=== PATIENT | female | born 1950 | race Caucasian/White ===

== ENCOUNTER 2017-12-29 15:50 | Observation (INO) | payer MEDICARE, BC ==
[~2017-12-29] VITALS: Ht 165.1 cm; Wt 62.5 kg
--- NOTE | ~2017-12-29 | DS ---
PATIENT:SYD LENNON :50 MEDICAL RECORD: [id number] DISCHARGE SUMMARY ADMISSION DATE: 12/29/17 DISCHARGE DATE: 12/30/17 DIAGNOSES: 1. Hypertension. 2. Sinusitis. HISTORY AND HOSPITAL COURSE: Ms. Lennon presents with vague symptomatology from sinusitis and stating her blood pressure had been out of control. However, she restarted her lisinopril and metoprolol that she had at home, and her heart rate and blood pressure are well controlled since she has been in. Her troponin was normal. She underwent cardiac catheterization 2 years ago, which was normal. No other cardiac workup or treatment is necessary at this time. TRANSINT:[id number] Voice Confirmation ID: [id number] DOCUMENT ID: [id number] DARREN ROSAS MD at 1914 CC: [id number] DICTATION DATE: 12/30/17 1128 SPECIAL EDUCATION INCLUSION TEACHER: 12/31/17 0959 DIS IN 12/30/17 [facility] [address] [place] [address]
--- NOTE | ~2017-12-29 | HP ---
PATIENT: SYD LENNON MEDICAL RECORD: [id number] ACCOUNT: [id number] LOCATION:[address] : 50 ADMISSION DATE: 12/29/17 PCP: EMILIA VALERA DO HISTORY AND PHYSICAL EXAMINATION DIAGNOSES: 1. Hypertension. 2. Fatigue. 3. Sinusitis. HISTORY OF PRESENT ILLNESS: Ms. Lennon developed a sinusitis approximately a week ago, was taking Benadryl. This caused her to have a spike in her blood pressure. She was previously on metoprolol and lisinopril. She went to [facility]. They told her to resume her lisinopril and metoprolol. She continued to have vague symptomatology, presents to the Emergency Room. She did have some chest pain. Over 2 years ago, she underwent cardiac catheterization, which was totally normal. Her troponin is normal. Her EKG is normal. Her heart rate and blood pressure are fine on the metoprolol and lisinopril. PHYSICAL EXAMINATION: GENERAL APPEARANCE: Well-nourished, well-developed, appears stated age. Level of distress, comfortable. PSYCHIATRIC: Mental status, alert, normal affect. Orientation, oriented to time, place and person. EYES: Lids and conjunctiva, noninjected. No discharge, no pallor. ENT: Lips, teeth, gums, normal dentition. Oropharynx, no cyanosis, no pallor. NECK: Carotid arteries, bilateral normal upstroke, no bruits, no thrills. JUGULAR VEINS: No jugular venous pressure or distention. CERVICAL LYMPH NODES: Nontender, nonenlarged. THYROID: Not enlarged. Nontender. No nodules. LUNGS: Respiratory effort, unlabored. CHEST: Normal curvature. No thoracic deformity. No chest wall tenderness. Percussion, resonant. Auscultation, clear. No wheezes, no rales, no rhonchi. CARDIOVASCULAR: Precordial exam, nondisplaced. No heaves or pericardial thrills. Rate and rhythm, regular. Heart sounds, normal S1, normal S2. No S3, no gallop, no rub. Systolic murmur, not heard. Diastolic murmur, not heard. EXTREMITIES: No cyanosis, no edema. Peripheral pulses, full and equal in all extremities, except as noted. No bruits appreciated. ABDOMEN: Soft, nondistended. Normal aorta. No bruit. Nontender. No masses. Liver, nontender, no hepatomegaly. Spleen, nontender, no splenomegaly. MUSCULOSKELETAL: No joint tenderness. No joint swelling. No erythema. NEUROLOGICAL: Normal gait, normal strength, normal tone. SKIN: Warm and dry. OVERALL IMPRESSION: Good heart rate and blood pressure control with lisinopril and metoprolol. Her sinusitis is minimal at this point. She does not need any further cardiac workup. TRANSINT:[id number] Voice Confirmation ID: [id number] DOCUMENT ID: [id number] HISTORY AND PHYSICAL [id number] SYD LENNON, DARREN CALHOUN at 1913 CC: [id number] DICTATION DATE: 12/30/17 112 HARDWOOD FINISHER: 12/30/17 1144 DIS IN 12/30/17 [facility] [address] [place] [address]
--- NOTE | ~2017-12-29 | MORECARE ---
CASE MANAGEMENT DISCHARGE SUMMARY PATIENT: SYD LENNON UNIT: [id number] ADM DATE: 12/29/17 AGE: 67 : 50 SEX: F ROOM/BED: D.5303 AUTHOR: VIVIENNE SAHA PHYSICIAN: REFERRING PHYSICIAN: DARREN ROSAS MD DATE OF SERVICE: 01/01/18 Discharge Plan Patient Name: SYD LENNON Facility: [facility]:[place] : 1950 Planned Disposition: Home Anticipated Discharge Date: 12/30/17 Discharge Date: 12/30/2017 Expected LOS: 1 Initial Reviewer: [email or web address] Initial Review Date: 01/01/2018 Generated: 01/01/18 9:47 am Patient Name: SYD LENNON Page [id number] at 0847 All edits/amendments must be made on the electronic document DICTATION DATE: 01/01/18846 TAX ANALYST: VIOLA 01/01/1847 RPT#: [id number] DC DATE:12/30/17 STATUS: DIS IN [facility] [address] [place] [address] END OF REPORT
[2017-12-29 16:00] VITALS: BP 123/75
[2017-12-29 16:43] LABS: BASOPHILS 0.3 % (0-2); EOSINOPHILS 1.9 % (0-7); HEMATOCRIT 38.7 % (36.0-48.0); HEMOGLOBIN 13.2 g/dL (12-16); MCH 31.4 pg (26.0-34.0); MCHC 34.1 g/dL (31.0-37.0); MCV 92.1 fL (80.0-100.0); MEAN PLATELET VOLUME 9.5 fL (7.4-10.4); MONOCYTES 7.6 % (2-11); NEUTROPHILS 66.2 % (40-80); PLATELET COUNT 195 10x3/uL (130-400); RDW 12.4 % (11.5-14.5); WBC 6.2 10x3/uL (4.8-10.8)
[2017-12-29 17:00] VITALS: BP 117/69
[2017-12-29 17:02] LABS: ALKALINE PHOSPHATASE 50 U/L (46-116); ALT (SGPT) 19 U/L (10-68); BILIRUBIN - TOTAL 0.56 mg/dL (0.2-1.3); CALC OSMOLALITY 284 mosm/kg (275-300); CALCIUM 9.4 mg/dL (8.5-10.1); CHLORIDE - SERUM 105 mmol/L (98-107); CREATININE - SERUM 0.8 mg/dL (0.6-1.3); GLUCOSE 114 mg/dL (74-106); POTASSIUM - SERUM 3.9 mmol/L (3.5-5.1); PROTEIN - SERUM 7.7 g/dL (6.4-8.2); SODIUM 142 mmol/L (136-145); UREA NITROGEN 15 mg/dL (7-18); eGFR NON AFRICAN AMERICAN 76 mL/min (90-120)
[2017-12-29 17:10] LABS: APTT 29.2 SECONDS (22.8-39.4); INR 1.04 (0.85-1.17); PROTIME 13.2 SECONDS (11.6-15.0)
[2017-12-29 17:14] LABS: CKMB 0.9 U/L (0.0-3.6); CREATINE KINASE 69 UL (21-215); PRO BNP 20 pg/mL (0-125)
[2017-12-29 17:15] LABS: TROPONIN-I < 0.017 ng/mL (0.000-0.060)
[2017-12-29 18:00] VITALS: BP 133/88
[2017-12-29 20:18] VITALS: BP 132/72; Ht 165.1 cm; Wt 62.5 kg
[2017-12-29] MEDS ORDERED: XANAX1 MG PO (20:31)
[2017-12-29] MEDS ORDERED: BAYER CHEWABLE81 MG PO (20:32)
[2017-12-29] MEDS ORDERED: XANAX0.5 MG PO (20:32)
[2017-12-29] MEDS ORDERED: TOPROL XL25 MG PO (20:33)
[2017-12-29] MEDS ORDERED: LISINOPRIL5 MG PO (20:33)
[2017-12-29 21:05] VITALS: BP 132/72
[2017-12-30 01:11] VITALS: BP 100/61
[2017-12-30 05:45] VITALS: BP 114/62
[2017-12-30 08:17] VITALS: BP 124/75
== END 2017-12-30 11:03 | disposition home or self-care (01) ==
LOC: D.ER 15:50 → OBSVTIME 17:47 → D.EDHOLD 17:47 → D.M2 18:57
PROVIDERS: Family Medicine
DX: R07.9 Chest pain, unspecified (principal); I10 Essential (primary) hypertension; R53.83 Other fatigue; J32.9 Chronic sinusitis, unspecified; T45.0X5A Adverse effect of antiallergic and antiemetic drugs, initial encounter

== ENCOUNTER → 2018-02-05 09:00 | Outpatient (CLI) | payer MEDICARE, BC ==
[2017-12-29 20:18] VITALS: BMI 22.9
[~2018-02-05 09:00] MED LIST: BAYER CHEWABLE81 MG PO; LISINOPRIL5 MG PO; TOPROL XL25 MG PO; XANAX0.5 MG PO; XANAX1 MG PO
== END | disposition home or self-care (01) ==
LOC: D.MAMMO 01-08 11:45
DX: Z12.31 Encounter for screening mammogram for malignant neoplasm of breast (principal)